=== PATIENT | female | born 1940 | race Caucasian/White ===

== ENCOUNTER 2016-09-27 10:49 | Inpatient (IN) | payer MEDICARE, OTHER ==
[2016-09-27] VITALS (21 sets, daily range): BP systolic 86–143; BP diastolic 38–71; PULSE 56–82; RESP 14–25; Ht 167.6 cm; Wt 59.0 kg
[~2016-09-27] VITALS: Ht 167.6 cm; Wt 59.0 kg
[2016-09-27] MEDS ORDERED: TICA60TA PO (11:10)
[2016-09-27] MEDS ORDERED: LISI10TA2 PO (11:10)
[2016-09-27] MEDS ORDERED: CARV3.12 PO (11:10)
[2016-09-27] MEDS ORDERED: ASPI-664 PO (11:10)
[2016-09-27] MEDS ORDERED: LEVO75TA5 PO ×2 (11:10→17:55)
[2016-09-27] MEDS ORDERED: ATOR80TA75 PO (11:10)
[2016-09-27] MEDS ORDERED: ISOS30TA5 PO (11:10)
[2016-09-27] MEDS ORDERED: LIDOCAINE 1% (MDV) 20 ML INJ ONE (11:12)
[2016-09-27] MEDS ORDERED: IODIXANOL LOCM 100 ML BTL ONE (11:12)
[2016-09-27] MEDS ORDERED: FENTAnyl 50 MCG/ML VIAL ONE (11:13)
[2016-09-27] MEDS ORDERED: MIDAZOLAM 1 MG/ML 2 ML INJ ONE (11:13)
[2016-09-27] MEDS ORDERED: VERAPAMIL 5 MG INJ ONE (11:13)
[2016-09-27] MEDS ORDERED: SOD CHLORIDE 0.9% 500 ML ONE (11:14)
[2016-09-27] MEDS ORDERED: NITROGLYCERIN (IC) 100 MCG/ML INJ ONE (11:14)
[2016-09-27] MEDS ORDERED: HEPARIN 1000 UNITS/ML 10 ML INJ ONE (11:58)
[2016-09-27] MEDS ORDERED: TICAGRELOR 90 MG TABLET ONE (12:03)
[2016-09-27] MEDS ORDERED: BIVALIRUDIN 250MG /NS 50 ML 50 ML IVPB ONE (12:03)
[2016-09-27] MEDS ORDERED: IOHEXOL 350MG/ML 50 ML BTL ONE (12:28)
[2016-09-27] MEDS ORDERED: SOD CHLORIDE 0.9% 1,000 ML IV SCH (13:15)
[2016-09-27] MEDS ORDERED: morphine 2 MG INJ IV PRN (13:30)
--- NOTE | 2016-09-27 13:38 | OPR ---
Date/Time of Note Date/Time of Note DATE: 09/27/16 TIME: 13:25 Operative Report Free Text/Dictation Procedure Date: 09/27/2016 Procedures Performed: 1)Left heart catheterization with selective left and right coronary angiography. 2)Balloon angioplasty and stenting of the ostial RCA with a Synergy 2.25 x 20 drug-eluting stent. Pre-operative Diagnosis: Chest pain with ACS, known residual ostial RCA lesion noted during PCI for recent anterior ND Post-operative Diagnosis:same. s/p ostial RCA PCI Indications:76 yo F with a h/o CAD with recent anterior STEMI s/p PCI with stents to prox and distal LAD and known residual ostial RCA disease who presented with recurrent chest pain. Initial trop at [facility] was 0.9, repeat at [place] was normal. As pt had recurrent symptoms and known residual stenosis which was to be revascularized, the plan was for angiography to confirm and possible PCI. Description of Procedure: After informed consent, the patient was brought to the cardiac catheterization lab. The procedure site was prepped and draped in usual manner. The patient was premedicated with versed 0.5 mg . 5 mL lidocaine was injected into the right groin. Next using a micropuncture needle and the Seldinger technique, the 6 norwegian sheath was inserted into the right femoral artery. Next using the JL4 and JR4, selective angiography of the left and right coronary arteries were obtained. LV pressures were obtained with the JR. Left ventricle angiography was not obtained. The decision was made to proceed with PCI of the ostial RCA as this was angiographically stenosed and the pt had recurrent angina. The remainder of the vessel had diffuse plaquing and the decision was made to only stent the ostial RCA. A 6 norwegian JR 3.5 with side holes guide was advanced and engaged into the right coronary artery. After appropriate anticoagulation and antiplatelets were given, the BMW angioplasty wire was advanced past the lesion. Next the 2.0 X 12 balloon was used to dilate the lesion times 3 at a maximum of 12 aaliyah. Subsequently, the Synergy 2.25 x 20 stent was advanced to the lesion and deployed at 11 aaliyah. Next the stent was post dilated with the 2.5 X 12 noncompliant balloon times 3 at a maximum of 12 aaliyah including fairing of the ostium. Final angiography revealed ANKUR 3 flow, no edge dissection, and appropriate stent expansion. Next all equipment was removed and hemostasis was achieved by manual compression which will be done in the ICU. Findings: Anatomy/Hemodynamics: Left main: normal LAD:prox and distal stents patent Diagonal:small diffusely disease vessel Circumflex:no significant disease Obtuse marginal:no significant disease RCA: dominant but small vessel with ostial 70-80%, and diffuse plaquing including up to 50% in the mid and distal vessel PDA: mild plaquing PLV:mild plaquing LV angiography:not done LV-Ao pullback: no gradient LVEDP: 5 mmHg Contrast used: 190mL Medications used: Versed 0.5 Ticagrelor 90mg (pt received 90mg earlier in day and has been on it at home) ASA already given prior angiomax bolus plus drip Equipment used: 6 norwegian JR 3.5 with side holes guide BMW angioplasty wire 2 x 12 balloon Synergy 2.25 x 20 drug eluting stent 2.5 x 12 noncompliant balloon Assessment: ACS/chest pain s/p PCI of ostial RCA h/o anterior STEMI (patent stents) Ischemic cardiomyopathy: EF 40% Plan: -ASA 81mg -ticagrelor 90mg BID -lipitor -coreg and lisinopril as BP and HR tolerate -imdur 30mg for small vessel disease -monitor o/n. Possible d/c tomorrow TRUNG SHAH September 27, 2016 13:38
[2016-09-27] MEDS ORDERED: ATROPINE 1 MG/10 ML SYRINGE ONE (15:11)
[2016-09-27] MEDS: LISINOPRIL 5 MG TAB PO SCH (15:39)
[2016-09-27] MEDS: ASPIRIN 81 MG TAB PO SCH (15:39)
[2016-09-27] MEDS: ISOSORBIDE MONONITRATE(SR)30 MG TAB PO SCH (15:39)
[2016-09-27] MEDS ORDERED: traMADol 50 MG TAB PO PRN (18:30)
[2016-09-27] MEDS ORDERED: ATORVASTATIN 40 MG TAB PO SCH (21:00)
[2016-09-27] MEDS: TICAGRELOR 90 MG TABLET PO SCH (21:06)
[2016-09-28] VITALS (15 sets, daily range): BP systolic 90–122; BP diastolic 49–73; PULSE 60–81; RESP 15–20
[2016-09-28 05:48] LABS: ADD SCAN DIFF NO
[2016-09-28 05:53] LABS: BASOPHILS % 0.4 % (0.0-2.0); EOSINOPHILS # 0.1 10^3/ul (0.0-0.5); EOSINOPHILS % 1.1 % (0.0-7.0); HEMATOCRIT 36.4 % (37.0-47.0); LYMPHOCYTES # 1.2 10^3/ul (0.8-2.9); LYMPHOCYTES % 14.7 % (15.0-51.0); MEAN CORPUSCULAR HEMOGLOBIN 29.9 pg (29.0-33.0); MEAN CORPUSCULAR VOLUME 90.8 fl (82.0-101.0); MEAN PLATELET VOLUME 10.5 fl (7.4-10.4); MONOCYTE # 0.7 10^3/ul (0.3-0.9); MONOCYTES % 8.1 % (0.0-11.0); NEUTROPHIL # 6.2 10^3/ul (1.6-7.5); PLATELET COUNT 223 10^3/UL (140-415); RED BLOOD COUNT 4.01 10^6/ul (4.20-5.40); WHITE BLOOD COUNT 8.3 10^3/ul (4.8-10.8)
[2016-09-28] MEDS ORDERED: LEVOTHYROXINE 75 MCG TAB PO SCH (06:00)
[2016-09-28 06:15] LABS: POTASSIUM 3.8 mmol/L (3.5-5.1)
[2016-09-28 06:17] LABS: CREATININE 0.69 mg/dl (0.44-1.00)
[2016-09-28 06:18] LABS: CALCIUM 9.2 mg/dl (8.4-10.2); PHOSPHORUS 4.5 mg/dl (2.5-4.9)
[2016-09-28 06:19] LABS: MAGNESIUM 1.9 mg/dl (1.7-2.5)
--- NOTE | 2016-09-28 06:26 | HP ---
DATE OF ADMISSION: 09/27/2016 CHIEF COMPLAINT: Chest pain, acute coronary syndrome. HISTORY OF PRESENT ILLNESS: This is a 76-year-old female with a past medical history of hypertensio n, coronary artery disease and dyslipidemia who initially presented to an outside hospital for evalu ation of chest pain. The patient's history begins approximately several weeks ago, when she initial ly went under cardiac catheterization at [facility] and had 2 stents placed. At that point the patient's stents were placed on the left side, per family; however, she was also noted to have right coronary artery stenosis which needed further intervention. The patient afterwards was discha rged home and on medical management. Two or 3 days prior to this current admission the patient deve loped chest pain and was initially brought to [facility]. She had an elevated troponin and was trans ferred to [facility] for continued care. While at [facility] the patient was being treated for a non-ST elevation myocardial infarction. She was medically managed and transferr ed to [facility] where she underwent cardiac catheterization with angioplasty, PCI and stenting of the RCA. Postoperatively the patient was transferred to the intensive care unit fo r observation. Upon my evaluation of the patient at this time she is currently stable. Denies any active chest iron n, nausea, vomiting or shortness of breath. PAST MEDICAL HISTORY: History of coronary artery disease and hypertension. PAST SURGICAL HISTORY: Status post cardiac catheterization with PCI. FAMILY HISTORY: Noncontributory. SOCIAL HISTORY: Does not drink, smoke or do drugs. MEDICATIONS: The patient's medications have been reviewed and reconciled. REVIEW OF SYSTEMS: A 14-point review of systems was conducted. Pertinent positives as stated in th e HPI, otherwise negative. PHYSICAL EXAMINATION: VITAL SIGNS: Blood pressure 140/61, respirations 40, pulse 73, temperature 98.6. HEENT: Head is normocephalic. NECK: Supple. HEART: Regular rate. LUNGS: Show diminished breath sounds at the base. ABDOMEN: Soft, nontender to palpation. No rebound or guarding. EXTREMITIES: Negative for clubbing or cyanosis. No edema. DERMATOLOGIC: No rashes. MUSCULOSKELETAL: Have no joint effusion. NEUROLOGIC: No focal deficits. MEDICATIONS: The patient's medications have been reviewed. LABORATORY DATA: Labs from the outside hospital shows a troponin of 0.017, a sodium of 142, potassiu m 3.4, BUN 9, creatinine 0.7. White count 6.9, hemoglobin 13.1, hematocrit of 39, platelet count is 211. ASSESSMENT AND PLAN: This is a 76-year-old female who presents with: 1. Non-ST elevation myocardial infarction. The patient is status post cardiac catheterization with a PCI to the RCA with a drug-eluting stent. Plan at this point is to continue the current medical management with aspirin, Brilinta and Lipitor. Will continue Coreg and lisinopril as blood pressure tolerates. Will monitor in the intensive care unit. Follow up with cardiology for further recomme ndations. 2. Hypertension. Blood pressure is currently well controlled. Continue the current blood pressure regimen as tolerated. Adjust medications as needed. 3. Dyslipidemia. Continue statin therapy. 4. History of coronary artery disease status post PCI, with 2 stents placed to the LAD. Continue t he current medical management. 5. Hypothyroidism. Continue Synthroid. Please note, I spent 25 minutes in [id number] time with the patient. The patient is FULL CODE. DISPOSITION: Anticipate possible discharge in the a.m. Dictated By: DEZ STEVENSON/JERICHO Conf#: [id number] DID#: [id number]
[2016-09-28] MEDS: ASPIRIN 81 MG TAB PO SCH (08:42)
[2016-09-28] MEDS: TICAGRELOR 90 MG TABLET PO SCH (08:43)
[2016-09-28] MEDS: ISOSORBIDE MONONITRATE(SR)30 MG TAB PO SCH (09:00)
[2016-09-28] MEDS: LISINOPRIL 5 MG TAB PO SCH (09:00)
--- NOTE | 2016-09-28 10:58 | DS ---
Date/Time of Note Date/Time of Note DATE: 09/28/16 TIME: 10:57 Discharge Summary Admission/Discharge Info Admit Date/Time September 27, 2016 at 13:32 Discharge Date/Time Final Diagnosis 1. Non-ST elevation myocardial infarction. The patient is status post cardiac catheterization with a PCI to the RCA with a drug-eluting stent. Plan at this point is to continue the current medical management with aspirin, Brilinta and Lipitor. Will continue Coreg and lisinopril as blood pressure tolerates. Will monitor in the intensive care unit. Follow up with cardiology for further recommendations. 2. Hypertension. Blood pressure is currently well controlled. Continue the current blood pressure regimen as tolerated. Adjust medications as needed. 3. Dyslipidemia. Continue statin therapy. 4. History of coronary artery disease status post PCI, with 2 stents placed to the LAD. Continue the current medical management. 5. Hypothyroidism. Continue Synthroid. Patient Condition: Fair Hospital Course This is a 76-year-old female with a past medical history of hypertension, coronary artery disease and dyslipidemia who initially presented to an outside hospital for evaluation of chest pain. The patient's history begins approximately several weeks ago, when she initially went under cardiac catheterization at [facility] and had 2 stents placed. At that point the patient's stents were placed on the left side, per family; however, she was also noted to have right coronary artery stenosis which needed further intervention. The patient afterwards was discharged home and on medical management. Two or 3 days prior to this current admission the patient developed chest pain and was initially brought to [facility]. She had an elevated troponin and was transferred to [facility] for continued care. While at [facility] the patient was being treated for a non- ST elevation myocardial infarction. She was medically managed and transferred to [facility] where she underwent cardiac catheterization with angioplasty, PCI and stenting of the RCA. Postoperatively the patient was transferred to the intensive care unit for observation. uncomplicated course but noted relatively low bp. Upon my evaluation of the patient at this time she is currently stable. Denies any active chest pain, nausea, vomiting or shortness of breath. REVIEW OF SYSTEMS: A 14-point review of systems was conducted. Pertinent positives as stated in the HPI, otherwise negative. PHYSICAL EXAMINATION: HEENT: Head is normocephalic. NECK: Supple. HEART: Regular rate. LUNGS: Show diminished breath sounds at the base. ABDOMEN: Soft, nontender to palpation. No rebound or guarding. EXTREMITIES: Negative for clubbing or cyanosis. No edema. DERMATOLOGIC: No rashes. MUSCULOSKELETAL: Have no joint effusion. NEUROLOGIC: No focal deficits. Home Meds Reported Medications Levothyroxine Sodium* (Levothyroxine Sodium*) 75 Mcg Tablet, 75 MCG PO BEFORE BREAKFAST, #30 TAB 09/27/16 Lisinopril* (Lisinopril*) 10 Mg Tablet, 10 MG PO DAILY, #30 TAB 09/27/16 Levothyroxine Sodium* (Levothyroxine Sodium*) 75 Mcg Tablet, 75 MCG PO BEFORE BREAKFAST, #30 TAB 09/27/16 Isosorbide Mononitrate* (Isosorbide Mononitrate*) 30 Mg Tab.er.24h, 30 MG PO DAILY, TAB 09/27/16 Ticagrelor (Brilinta) 60 Mg Tablet, 60 MG PO, TAB 09/27/16 Carvedilol* (Coreg*) 3.125 Mg Tablet, 3.125 MG PO BID, #60 TAB 09/27/16 Atorvastatin* (Atorvastatin*) 80 Mg Tablet, 80 MG PO QHS, #30 TAB 09/27/16 Aspirin* (Aspirin* EC) 81 Mg Tablet., 81 MG PO DAILY, TAB 09/27/16 Primary Care Provider Not On Staff Doctor Time spent on discharge: > 30 minutes Pending Labs Laboratory Tests Test 09/28/16 05:05 White Blood Count 8.310^3/ul (4.8-10.8) Red Blood Count 4.0110^6/ul (4.20-5.40) Hemoglobin 12.0g/dl (12.0-16.0) Hematocrit 36.4% (37.0-47.0) Mean Corpuscular Volume 90.8fl (82.0-101.0) Mean Corpuscular Hemoglobin 29.9pg (29.0-33.0) Mean Corpuscular Hemoglobin Concent 33.0g/dl (32.0-37.0) Red Cell Distribution Width 13.0% (11.5-14.5) Platelet Count 61595^3/UL (140-415) Mean Platelet Volume 10.5fl (7.4-10.4) Neutrophils % 75.0% (39.0-77.0) Lymphocytes % 14.7% (15.0-51.0) Monocytes % 8.1% (0.0-11.0) Eosinophils % 1.1% (0.0-7.0) Basophils % 0.4% (0.0-2.0) Nucleated Red Blood Cells % 0.0/100WBC (0.0-0.0) Neutrophils # 6.210^3/ul (1.6-7.5) Lymphocytes # 1.210^3/ul (0.8-2.9) Monocytes # 0.710^3/ul (0.3-0.9) Eosinophils # 0.110^3/ul (0.0-0.5) Basophils # 0.010^3/ul (0.0-0.1) Nucleated Red Blood Cells # 0.010^3/ul (0.0-0.0) Sodium Level 139mmol/L (135-144) Potassium Level 3.8mmol/L (3.5-5.1) Chloride Level 101mmol/L (97-110) Carbon Dioxide Level 27mmol/L (21-31) Anion Gap 15 (8-16) Blood Urea Nitrogen 10mg/dl (7-20) Creatinine 0.69mg/dl (0.44-1.00) Glucose Level 110mg/dl (70-220) Calcium Level 9.2mg/dl (8.4-10.2) Phosphorus Level 4.5mg/dl (2.5-4.9) Magnesium Level 1.9mg/dl (1.7-2.5) Microbiology Date/Time Source Procedure Growth Status 09/27/16 14:05 Nares MRSA Screen - Preliminary Screening in process Resulted LATOSHA POLLARD MD September 28, 2016 10:58
== END 2016-09-28 13:00 | disposition home or self-care (01) | DRG 247 ==
LOC: CCL 10:49 → SDS 10:49 → CCL 13:31 → ICU 13:32
PROVIDERS: ADMIT Internal Medicine; ATTEND Internal Medicine
PROC: B211YZZ Fluoroscopy of Multiple Coronary Arteries using Other Contrast (ICD-10-PCS; 2016-09-27)
PROC: 027034Z Dilation of Coronary Artery, One Artery with Drug-eluting Intraluminal Device, Percutaneous Approach (ICD-10-PCS; principal; 2016-09-27 12:00)
PROC: 4A023N7 Measurement of Cardiac Sampling and Pressure, Left Heart, Percutaneous Approach (ICD-10-PCS; 2016-09-27 12:00)
DX: I21.4 Non-ST elevation (NSTEMI) myocardial infarction (principal); I42.9 Cardiomyopathy, unspecified; E11.9 Type 2 diabetes mellitus without complications; I25.110 Atherosclerotic heart disease of native coronary artery with unstable angina pectoris; I10 Essential (primary) hypertension; E78.5 Hyperlipidemia, unspecified; E03.9 Hypothyroidism, unspecified; Z79.4 Long term (current) use of insulin; Z79.02 Long term (current) use of antithrombotics/antiplatelets; Z79.82 Long term (current) use of aspirin
CPT/HCPCS: 80048; 83735; 84100; 85025; 87081; 93458; C1725; C1769; C1874; C1887; C1894; C9600; J0461; J0583; J1644; J2250; J3010; J7040; Q9967